=== PATIENT | male | born 1960 | race African-American/Black ===

== ENCOUNTER 2017-09-24 16:09 | Emergency (ER) | payer SELFPAY ==
[~2017-09-24] VITALS: Ht 177.8 cm; Wt 110.0 kg
[~2017-09-24 16:09] MED LIST: ACETAMIN325 MG PO; ADLT ASA LOW81 MG PO; AMLODIPINE5 MG PO; ATORVASTATIN CA40 MG PO; BL ADULT ASA81 MG OR; CAPTOPRIL25 MG OR; CIPROFLOXACN500 MG PO; CLONIDINE0.2 MG OR; COREG25 MG PO; HYDROCHLOROT25 MG OR; HYDROCHLOROT25 MG PO; LEVEMIR FL100 UNIT/M SC; LEVEMIR1000 UNITS SC; LISINOP/HCTZ1 TA1 PO; LYRICA100 MG PO; LYRICA50 MG PO; METFORMIN500 MG; METFORMIN500 MG PO; NO DOZ200 MG; NO MEDS; NOVOLOG MIX100 U/ML SC; NOVOLOG100 IU/1 M SC; PRILOSEC20 MG OR; PRILOSEC20 MG/CAP OR; REGLAN10 MG PO; THORAZINE25 MG OR; VERAPAMIL HCL180 MG PO; VERAPAMIL120 M1 PO; VERAPAMIL80 MG OR; ZOFRAN ODT4 MG PO; ZOFRAN ODT8 MG SL; ZOFRAN4 MG OR; ZOFRAN4 MG/TAB PO
[2017-09-24 17:01] LABS: HEMATOCRIT 44.1 % (39.0-50.0); HEMOGLOBIN 14.9 g/dl (14.0-18.0); IMMATURE GRANULOCYTES 0.9 % (0.0-1.0); MEAN CELL VOLUME 84.6 fL CALC (80.0-100.0); MEAN CORPUSCULAR HGB 28.6 pG CALC (26.0-32.0); MEAN CORPUSCULAR HGB CONC 33.8 g/L CALC (32.0-36.0); NEUT# 9.44 thou/uL (1.82-7.42); RED BLOOD COUNT 5.21 mill/uL (4.70-6.10); RED CELL DISTRI WIDTH 14.3 % (11.5-15.5)
[2017-09-24 17:17] LABS: INTERNATIONAL NORMALIZED RATIO 0.9 RATIO (0.7-1.3); PROTHROMBIN TIME 10.4 SECONDS (9.0-12.5)
[2017-09-24 17:41] LABS: ALBUMIN 4.9 g/dL (3.2-5.0); ALKALINE PHOSPHATASE 130 u/l (38-126); ANION GAP 22 (6-22 (CALC)); BILIRUBIN, TOTAL 0.6 mg/dL (0.0-1.4); BUN 15 mg/dL (9-20); BUN/CREATININE RATIO 18 (12-20 (CALC)); CALCIUM 10.2 mg/dL (8.4-10.2); CARBON DIOXIDE 26 mmol/l (22-30); CHLORIDE 98 mmol/l (95-108); CREATININE 0.8 mg/dL (0.7-1.3); GFR > 60 ML/MIN (>=60 (CALC)); GFR FOR AFR.AMER. > 60 ML/MIN (>=60 (CALC)); GLUCOSE 282 mg/dL (75-110); LIPASE 52 u/l (23-300); POTASSIUM 3.9 mmol/l (3.5-5.1); SGOT/AST 22 u/l (17-59); SGPT/ALT 28 u/l (21-72); SODIUM 143 mmol/l (137-146); TOTAL PROTEIN 7.6 g/dL (6.3-8.2)
[2017-09-24 19:25] VITALS: BP 158/81
[2017-09-24] MEDS ORDERED: ZOFRAN4 MG/TAB PO (19:42)
[2017-09-24] MEDS ORDERED: BENTYL20 MG PO (19:42)
[2017-09-24] MEDS ORDERED: PROTONIX40 MG PO (19:44)
== END 2017-09-24 19:25 | disposition home or self-care (01) | DRG 392 ==
LOC: ED 16:09
PROVIDERS: Family Medicine
DX: K52.9 Noninfective gastroenteritis and colitis, unspecified (principal); E11.9 Type 2 diabetes mellitus without complications; I10 Essential (primary) hypertension; F17.210 Nicotine dependence, cigarettes, uncomplicated
CPT/HCPCS: Q9967

== ENCOUNTER 2018-11-07 08:59 | Observation (INO) | payer BC ==
[2018-11-07] VITALS (60 sets, daily range): BP systolic 101–218; BP diastolic 54–119
[~2018-11-07] VITALS: Ht 177.8 cm; Wt 100.0 kg
[~2018-11-07 08:59] MED LIST changes: +BENTYL20 MG PO; +PROTONIX40 MG PO
[2018-11-07 10:21] LABS: HEMATOCRIT 42.3 % (39.0-50.0); HEMOGLOBIN 13.8 g/dl (14.0-18.0); IMMATURE GRANULOCYTES 0.5 % (0.0-5.0); MEAN CELL VOLUME 84.9 fL CALC (80.0-100.0); MEAN CORPUSCULAR HGB 27.7 pG CALC (26.0-32.0); MEAN CORPUSCULAR HGB CONC 32.6 g/L CALC (32.0-36.0); NEUT# 7.88 thou/uL (1.82-7.42); RED BLOOD COUNT 4.98 mill/uL (4.70-6.10); RED CELL DISTRI WIDTH 14.2 % (11.5-15.5)
[2018-11-07 10:27] LABS: URINE BILIRUBIN - DIPSTICK NEGATIVE (NEGATIVE); URINE BLOOD DIPSTICK NEGATIVE (NEGATIVE); URINE COLOR YELLOW; URINE GLUCOSE - DIPSTICK >=1000 mg/dL (NEGATIVE); URINE KETONE 15 mg/dL (NEGATIVE); URINE LEUK ESTERASE NEGATIVE (NEGATIVE); URINE NITRITE - DIPSTICK NEGATIVE (Negative); URINE PROTEIN - DIPSTICK NEGATIVE (NEG-TRACE); URINE SPECIFIC GRAVITY 1.015; URINE UROBILINOGEN - DIPSTICK 0.2 E.U./dL (0.2)
[2018-11-07 10:47] LABS: ALBUMIN 4.7 g/dL (3.2-5.0); ALKALINE PHOSPHATASE 120 u/l (38-126); ANION GAP 17 (6-22 (CALC)); BILIRUBIN, TOTAL 0.7 mg/dL (0.0-1.4); BUN 14 mg/dL (9-20); BUN/CREATININE RATIO 18 (12-20 (CALC)); CARBON DIOXIDE 25 mmol/l (22-30); CHLORIDE 102 mmol/l (95-108); CREATININE 0.8 mg/dL (0.7-1.3); GFR > 60 ML/MIN (>=60 (CALC)); GFR FOR AFR.AMER. > 60 ML/MIN (>=60 (CALC)); LIPASE 96 u/l (23-300); POTASSIUM 4.4 mmol/l (3.5-5.1); SGOT/AST 33 u/l (17-59); SODIUM 140 mmol/l (137-146); TOTAL PROTEIN 7.2 g/dL (6.3-8.2)
[2018-11-07] MEDS ORDERED: EQL ASPIRIN LOW81 MG PO (10:58)
[2018-11-07] MEDS ORDERED: ONDANSETRON4 MG PO (10:58)
[2018-11-08] VITALS (11 sets, daily range): BP systolic 104–134; BP diastolic 59–81
[2018-11-08 04:42] LABS: HEMATOCRIT 40.6 % (39.0-50.0); HEMOGLOBIN 13.6 g/dl (14.0-18.0); IMMATURE GRANULOCYTES 0.4 % (0.0-5.0); MEAN CELL VOLUME 83.7 fL CALC (80.0-100.0); MEAN CORPUSCULAR HGB CONC 33.5 g/L CALC (32.0-36.0); NEUT# 8.18 thou/uL (1.82-7.42); RED BLOOD COUNT 4.85 mill/uL (4.70-6.10); RED CELL DISTRI WIDTH 14.1 % (11.5-15.5)
[2018-11-08 04:54] LABS: ALBUMIN 4.1 g/dL (3.2-5.0); ALKALINE PHOSPHATASE 94 u/l (38-126); AMYLASE 106 u/l (30-110); BILIRUBIN, TOTAL 0.9 mg/dL (0.0-1.4); BUN 21 mg/dL (9-20); BUN/CREATININE RATIO 22 (12-20 (CALC)); CARBON DIOXIDE 24 mmol/l (22-30); CHLORIDE 103 mmol/l (95-108); CREATININE 0.9 mg/dL (0.7-1.3); GFR > 60 ML/MIN (>=60 (CALC)); GFR FOR AFR.AMER. > 60 ML/MIN (>=60 (CALC)); LIPASE 270 u/l (23-300); MAGNESIUM 1.7 mg/dL (1.6-2.3); SGOT/AST 25 u/l (17-59); SODIUM 138 mmol/l (137-146); TOTAL PROTEIN 6.5 g/dL (6.3-8.2)
[2018-11-08 04:56] LABS: ANION GAP 14 (6-22 (CALC))
[2018-11-08 04:57] LABS: POTASSIUM 3.2 mmol/l (3.5-5.1)
== END 2018-11-08 14:30 | disposition home or self-care (01) | DRG 305 ==
LOC: ED 08:59 → ED-I 13:18 → ED 13:29 → ICU 13:30
PROVIDERS: Family Medicine; ADMIT Internal Medicine Nephrology; ATTEND Internal Medicine Nephrology
PROC: 3E02340 Introduction of Influenza Vaccine into Muscle, Percutaneous Approach (ICD-10-PCS; principal; 2018-11-08)
PROC: 3E0234Z Introduction of Serum, Toxoid and Vaccine into Muscle, Percutaneous Approach (ICD-10-PCS; 2018-11-08)
DX: I16.1 Hypertensive emergency (principal); I10 Essential (primary) hypertension; K52.9 Noninfective gastroenteritis and colitis, unspecified; E11.9 Type 2 diabetes mellitus without complications; D35.01 Benign neoplasm of right adrenal gland; E78.5 Hyperlipidemia, unspecified; F12.10 Cannabis abuse, uncomplicated; F17.210 Nicotine dependence, cigarettes, uncomplicated; T46.5X6A Underdosing of other antihypertensive drugs, initial encounter; Z91.138 Patient's unintentional underdosing of medication regimen for other reason; Z79.4 Long term (current) use of insulin; Z23 Encounter for immunization
CPT/HCPCS: J1650; Q9967

== ENCOUNTER → 2018-11-23 | Outpatient (REF) ==
[~2018-11-23] MED LIST changes: +ADULT ASPIRIN R81 MG PO; +AMOXICILLIN500 MG PO; +CARVEDILOL6.25 MG PO; +CLARITHROMYC500 MG PO; +EQL ASPIRIN LOW81 MG PO; +HYDRALAZINE25 MG PO; +LISINOPRIL/HYDR1 TA1 PO; +LISINOPRIL10 MG PO; +OMEPRAZOLE10 MG PO; +ONDANSETRON4 MG PO; +PREVPAC PO
== END | disposition home or self-care (01) | DRG 639 ==
LOC: LAB 10:47
PROVIDERS: ATTEND Nurse Practitioner Family
DX: E11.65 Type 2 diabetes mellitus with hyperglycemia (principal); D35.01 Benign neoplasm of right adrenal gland; I10 Essential (primary) hypertension; E87.6 Hypokalemia; D72.829 Elevated white blood cell count, unspecified; Z12.5 Encounter for screening for malignant neoplasm of prostate

== ENCOUNTER 2018-12-09 18:34 | Emergency (ER) | payer BC ==
[~2018-12-09] VITALS: Ht 177.8 cm; Wt 98.2 kg
[~2018-12-09 18:34] MED LIST changes: -ADULT ASPIRIN R81 MG PO; -AMOXICILLIN500 MG PO; -CARVEDILOL6.25 MG PO; -CLARITHROMYC500 MG PO; -HYDRALAZINE25 MG PO; -LISINOPRIL/HYDR1 TA1 PO; -LISINOPRIL10 MG PO; -OMEPRAZOLE10 MG PO; -PREVPAC PO
[2018-12-09 19:24] LABS: HEMATOCRIT 38.2 % (39.0-50.0); HEMOGLOBIN 12.4 g/dl (14.0-18.0); IMMATURE GRANULOCYTES 0.7 % (0.0-5.0); MEAN CELL VOLUME 84.7 fL CALC (80.0-100.0); MEAN CORPUSCULAR HGB 27.5 pG CALC (26.0-32.0); MEAN CORPUSCULAR HGB CONC 32.5 g/L CALC (32.0-36.0); NEUT# 6.78 thou/uL (1.82-7.42); RED BLOOD COUNT 4.51 mill/uL (4.70-6.10); RED CELL DISTRI WIDTH 14.2 % (11.5-15.5)
[2018-12-09 20:11] LABS: ALBUMIN 4.6 g/dL (3.2-5.0); ALKALINE PHOSPHATASE 96 u/l (38-126); ANION GAP 16 (6-22 (CALC)); BILIRUBIN, TOTAL 0.4 mg/dL (0.0-1.4); BUN 23 mg/dL (9-20); BUN/CREATININE RATIO 27 (12-20 (CALC)); CARBON DIOXIDE 23 mmol/l (22-30); CHLORIDE 103 mmol/l (95-108); CPK 110 u/l (52-200); CREATININE 0.9 mg/dL (0.7-1.3); GFR > 60 ML/MIN (>=60 (CALC)); GFR FOR AFR.AMER. > 60 ML/MIN (>=60 (CALC)); LIPASE 304 u/l (23-300); POTASSIUM 3.8 mmol/l (3.5-5.1); SGOT/AST 18 u/l (17-59); SODIUM 138 mmol/l (137-146); TOTAL PROTEIN 7.1 g/dL (6.3-8.2)
[2018-12-09 20:41] LABS: TSH, 3RD GENERATION 1.53 uIU/mL (0.47 - 4.68)
[2018-12-09 23:23] LABS: URINE BILIRUBIN - DIPSTICK NEGATIVE (NEGATIVE); URINE BLOOD DIPSTICK NEGATIVE (NEGATIVE); URINE COLOR YELLOW; URINE GLUCOSE - DIPSTICK 250 mg/dL (NEGATIVE); URINE KETONE 15 mg/dL (NEGATIVE); URINE LEUK ESTERASE NEGATIVE (NEGATIVE); URINE NITRITE - DIPSTICK NEGATIVE (Negative); URINE PROTEIN - DIPSTICK NEGATIVE (NEG-TRACE); URINE UROBILINOGEN - DIPSTICK 0.2 E.U./dL (0.2)
[2018-12-09 23:28] LABS: BARBITURATES NEGATIVE (NEGATIVE); COCAINE NEGATIVE (NEGATIVE); METHADONE NEGATIVE (NEGATIVE); OXCYCODONE NEGATIVE (NEGATIVE); TETRAHYDROCANNABIONOL POSITIVE (NEGATIVE); TRICYLIC ANTIDEPRESSANTS NEGATIVE (NEGATIVE)
[2018-12-09] MEDS ORDERED: ZOFRAN ODT4 MG PO (23:38)
[2018-12-09] MEDS ORDERED: PREVPAC PO (23:38)
[2018-12-10 00:25] VITALS: BP 156/72
== END 2018-12-10 00:25 | disposition home or self-care (01) | DRG 312 ==
LOC: ED 18:34
PROVIDERS: Emergency Medicine; Family Medicine
DX: R55 Syncope and collapse (principal); I10 Essential (primary) hypertension; K29.70 Gastritis, unspecified, without bleeding; B96.81 Helicobacter pylori [H. pylori] as the cause of diseases classified elsewhere; J06.9 Acute upper respiratory infection, unspecified; R53.1 Weakness; R11.2 Nausea with vomiting, unspecified; R42 Dizziness and giddiness; F17.200 Nicotine dependence, unspecified, uncomplicated; E11.8 Type 2 diabetes mellitus with unspecified complications; Z79.4 Long term (current) use of insulin
CPT/HCPCS: Q9967

== ENCOUNTER 2018-12-12 14:19 | Observation (INO) | payer BC ==
[~2018-12-12] VITALS: Ht 175.3 cm; Wt 94.5 kg
[~2018-12-12 14:19] MED LIST changes: +PREVPAC PO
--- NOTE | 2018-12-12 14:53 | NUR ---
PT TO ROOM VIA WHEELCHAIR.
--- NOTE | 2018-12-12 15:00 | NUR ---
PT UNSTEADY AMBULATING FROM WHEELCHAIR TO STRETCHER. PT REPORTS DIZZINESS. PT PLACED REMIANS SLIGHTLY HYPOTENSIVE. PERRLA. PT REPORTS LEFT OCCIPITAL HEAD PAIN FROM FALL. MINIMAL SWELLING NOTED TO BACK OF HEAD WITH MINIMAL TENDERNESS. PT HAS SMALL ABRASION WITH MINIMAL BLEEDING NOTED. PT DENIES ANY PAIN. PT AND MOTHER AWARE OF PLAN OF CARE AND WAIT TIME. CALL GIBBS WITHIN REACH.
--- NOTE | 2018-12-12 15:15 | NUR ---
IV INITIATED AND LABS COLLECTED. UNABLT TO PLACE PT ON ROD BENDING MACHINE OPERATOR AT THIS TIME. CHARGE NURSE NOTIFIED. WILL CONTINUE TO MONITOR. IV FLUIDS INITAITED.
[2018-12-12 15:39] LABS: HEMATOCRIT 37.6 % (39.0-50.0); HEMOGLOBIN 12.5 g/dl (14.0-18.0); IMMATURE GRANULOCYTES 1.2 % (0.0-5.0); MEAN CELL VOLUME 82.6 fL CALC (80.0-100.0); MEAN CORPUSCULAR HGB 27.5 pG CALC (26.0-32.0); MEAN CORPUSCULAR HGB CONC 33.2 g/L CALC (32.0-36.0); NEUT# 4.87 thou/uL (1.82-7.42); RED BLOOD COUNT 4.55 mill/uL (4.70-6.10); RED CELL DISTRI WIDTH 13.9 % (11.5-15.5)
[2018-12-12 15:56] LABS: CREATININE 1.6 mg/dL (0.7-1.3); POTASSIUM 3.2 mmol/l (3.5-5.1)
--- NOTE | 2018-12-12 16:00 | NUR ---
PT URINATED 300 MLS OF BETTE URINE. PT DENIES ANY NEEDS AT THIS TIME. WILL CONTINUE TO MONITOR.
--- NOTE | 2018-12-12 17:00 | NUR ---
PT DOES NOT KNOW MEDICATION LIST. PT WILL BE CALLING MOTHER TO BRING HIS MEDICATIONS.
--- NOTE | 2018-12-12 17:30 | NUR ---
BP 112/68. PT DENIES ANY DIZZINESS. PT PLACED ON WAREHOUSE TECHNICIAN.
--- NOTE | 2018-12-12 18:00 | NUR ---
RIGHT ELBOW CLEANSED WITH SURECLEANSE AND COVERED WITH BANDAID.
--- NOTE | 2018-12-12 18:32 | NUR ---
MOTHER AT BEDSIDE TO BRING MEDICATIONS. BOTH ARE AWARE OF PLAN FOR ADMISSION AND WAIT TIME. CALL GIBBS WITHIN REACH.
--- NOTE | 2018-12-12 18:33 | NUR ---
PT DOES NOT KNOWN INSULIN TYPE OR DOSE.
[2018-12-12] MEDS ORDERED: AMOXICILLIN500 MG PO (18:34)
[2018-12-12] MEDS ORDERED: ADULT ASPIRIN R81 MG PO (18:35)
[2018-12-12] MEDS ORDERED: HYDRALAZINE25 MG PO (18:36)
[2018-12-12] MEDS ORDERED: OMEPRAZOLE10 MG PO (18:36)
[2018-12-12] MEDS ORDERED: CARVEDILOL6.25 MG PO (18:37)
[2018-12-12] MEDS ORDERED: LISINOPRIL/HYDR1 TA1 PO (18:37)
[2018-12-12] MEDS ORDERED: CLARITHROMYC500 MG PO (18:38)
[2018-12-12] MEDS ORDERED: AMLODIPINE5 MG PO (18:39)
--- NOTE | 2018-12-12 18:45 | NUR ---
REPORT TO JUNIOR JONES.
--- NOTE | 2018-12-12 18:50 | NUR ---
PT TO BE TRANSPORTED TO ROOM IN 45MINS. JUNIOR JONES AWARE OF UNKNOWN INSULIN.
--- NOTE | 2018-12-12 19:45 | NUR ---
PT TRANSFERED TO FLOOR VIA WHEELCHAIR BY KATELIN RUFFIN NURSING LEATHER CLEANER WITH TELE PACK ON.
[2018-12-12 19:50] VITALS: BP 145/93
--- NOTE | 2018-12-12 19:50 | NUR ---
PT TRANSFERED FROM ER VIA WHEELCHAIR. PT ALERT AND ORIENTED X3. PT APPEARS TO HAVE DEVELOPMENTAL DELAY. LIVES AT HOME WITH HIS MOTHER. AMBULATED WITH STAND BY ASSIST FROM CHAIR TO BED. PT DENIES ANY PAIN AT THIS TIME STATES BACK OF HEAD IS SORE. RESPIRATIONS EVEN AND UNLABORED. SEIZURE PRECAUTIONS IN PLACE. THERMOFORMING OPERATOR ON. IV SITE APPEARS HEALTHY. ORIENTED TO ROOM AND CALL LIGHT SYSTEM. DISCUSSED POC. PT VERBALIZED UNDERSTANDING. CALL LIGHT WITHIN REACH. WILL CONTINUE TO MONITOR.
--- NOTE | 2018-12-12 23:15 | NUR ---
PT RESTING IN BED WITH EYES CLOSED. EASILY AROUSED. DENIES ANY PAIN OR DISCOMFORT. CALL LIGHT WITHIN REACH. WILL CONTINUE TO MONITOR.
[2018-12-12 23:54] VITALS: BP 103/60
[2018-12-13 04:07] VITALS: BP 110/79
--- NOTE | 2018-12-13 04:28 | NUR ---
PT RESTING IN BED WITH EYES CLOSED. EASILY AROUSED. ALERT AND ORIENTED. NO S/S OF DISTRESS NOTED. PT DENIES ANY WANTS OR NEEDS. CALL LIGHT WITHIN REACH. WILL CONTINUE TO MONITOR.
[2018-12-13 05:33] LABS: ALKALINE PHOSPHATASE 73 u/l (38-126); AMYLASE 82 u/l (30-110); BILIRUBIN, TOTAL 0.7 mg/dL (0.0-1.4); BUN 24 mg/dL (9-20); BUN/CREATININE RATIO 26 (12-20 (CALC)); CARBON DIOXIDE 28 mmol/l (22-30); CHLORIDE 97 mmol/l (95-108); GFR > 60 ML/MIN (>=60 (CALC)); GFR FOR AFR.AMER. > 60 ML/MIN (>=60 (CALC)); LIPASE 192 u/l (23-300); MAGNESIUM 1.8 mg/dL (1.6-2.3); SGOT/AST 15 u/l (17-59); SODIUM 134 mmol/l (137-146); TOTAL PROTEIN 5.8 g/dL (6.3-8.2)
[2018-12-13 05:35] LABS: ALBUMIN 3.6 g/dL (3.2-5.0); ANION GAP 13 (6-22 (CALC)); POTASSIUM 3.9 mmol/l (3.5-5.1)
[2018-12-13 05:36] LABS: HEMOGLOBIN 11.2 g/dl (14.0-18.0); IMMATURE GRANULOCYTES 1.1 % (0.0-5.0); MEAN CELL VOLUME 84.8 fL CALC (80.0-100.0); MEAN CORPUSCULAR HGB 27.9 pG CALC (26.0-32.0); MEAN CORPUSCULAR HGB CONC 32.9 g/L CALC (32.0-36.0); NEUT# 3.74 thou/uL (1.82-7.42); RED BLOOD COUNT 4.01 mill/uL (4.70-6.10); RED CELL DISTRI WIDTH 13.8 % (11.5-15.5)
--- NOTE | 2018-12-13 06:32 | NUR ---
NOTIFIED DR. IRVIN OF PT CURRENT LABS AND STATUS THROUGHOUT NIGHT. NO NEW ORDERS RECIEVED AT THIS TIME.
[2018-12-13 07:33] VITALS: BP 126/89
--- NOTE | 2018-12-13 08:00 | NUR ---
REPORT WAS RECEIVED FROM TIERA. PT IS SITTING IN THE SIDE OF THE BED. ASSESSMENT DONE. TELE IN PLACE. PT IS A&O X3. PT DENIES ANY PAIN AT THIS TIME. RESPS EVEN AND UNLABORED. SAFETY PRECAUTIONS REINFORCED AND CALL LIGHT IN REACH.
[2018-12-13 10:35] VITALS: BP 115/74
[2018-12-13 10:50] VITALS: BP 100/68
[2018-12-13 11:05] VITALS: BP 117/80
--- NOTE | 2018-12-13 11:26 | NUR ---
PT IS RESTING IN BED WITH NO S/S OF DISTRESS NOTED. PT DENIES ANY NEEDS AT THIS TIME. CALL LIGHT IN REACH.
[2018-12-13] MEDS ORDERED: LISINOPRIL10 MG PO (13:37)
--- NOTE | 2018-12-13 15:15 | NUR ---
Discharge instructions given. Patient verbalizes understanding of same. Discharged in stable condition via Wheelchair to Home with volunteer. All belongings sent with pt.
== END 2018-12-13 15:15 | disposition home health service (06) | DRG 316 ==
LOC: ED 14:19 → ED-I 17:19 → ED 17:55 → MS2 17:56
PROVIDERS: Family Medicine; ADMIT Internal Medicine Nephrology; ATTEND Internal Medicine Nephrology
DX: I95.9 Hypotension, unspecified (principal); E86.0 Dehydration; E87.6 Hypokalemia; E11.9 Type 2 diabetes mellitus without complications; I10 Essential (primary) hypertension; F17.210 Nicotine dependence, cigarettes, uncomplicated; N28.9 Disorder of kidney and ureter, unspecified; E78.5 Hyperlipidemia, unspecified; F79 Unspecified intellectual disabilities; Z79.4 Long term (current) use of insulin
CPT/HCPCS: G0378

== ENCOUNTER 2019-08-05 05:32 | Inpatient (IN) | payer BC ==
[2019-08-05] VITALS (26 sets, daily range): BP systolic 134–201; BP diastolic 64–115
[~2019-08-05] VITALS: Ht 175.3 cm; Wt 98.0 kg
[~2019-08-05 05:32] MED LIST changes: +ADULT ASPIRIN R81 MG PO; +AMOXICILLIN500 MG PO; +CARVEDILOL6.25 MG PO; +CLARITHROMYC500 MG PO; +HYDRALAZINE25 MG PO; +LISINOPRIL/HYDR1 TA1 PO; +LISINOPRIL10 MG PO; +OMEPRAZOLE10 MG PO
[2019-08-05 06:12] LABS: IMMATURE GRANULOCYTES 1.2 % (0.0-5.0); MEAN CORPUSCULAR HGB 26.6 pG CALC (26.0-32.0); MEAN CORPUSCULAR HGB CONC 32.9 g/L CALC (32.0-36.0); NEUT# 7.22 thou/uL (1.82-7.42); RED BLOOD COUNT 5.41 mill/uL (4.70-6.10)
[2019-08-05 06:14] LABS: HEMATOCRIT 43.8 % (39.0-50.0); HEMOGLOBIN 14.4 g/dl (14.0-18.0)
[2019-08-05 06:25] LABS: AMYLASE 80 u/l (30-110); BILIRUBIN, TOTAL 0.6 mg/dL (0.0-1.4); BUN 14 mg/dL (9-20); BUN/CREATININE RATIO 15 (12-20 (CALC)); CARBON DIOXIDE 29 mmol/l (22-30); CHLORIDE 101 mmol/l (95-108); CREATININE 0.9 mg/dL (0.7-1.3); GFR > 60 ML/MIN (>=60 (CALC)); GFR FOR AFR.AMER. > 60 ML/MIN (>=60 (CALC)); LIPASE 63 u/l (23-300); POTASSIUM 3.7 mmol/l (3.5-5.1); SGOT/AST 23 u/l (17-59)
[2019-08-05 06:27] LABS: ALBUMIN 4.9 g/dL (3.2-5.0); ALKALINE PHOSPHATASE 129 u/l (38-126); ANION GAP 17 (6-22 (CALC)); SODIUM 143 mmol/l (137-146); TOTAL PROTEIN 8.4 g/dL (6.3-8.2)
[2019-08-05 06:36] LABS: MYOGLOBIN 62 ng/mL (0 - 121)
[2019-08-05] MEDS ORDERED: ZESTRIL10 M1 PO (07:32)
[2019-08-05] MEDS ORDERED: COREG6.25 MG PO (07:33)
[2019-08-05] MEDS ORDERED: LEVEMIR FL100 UNIT/M SC (07:34)
[2019-08-05] MEDS ORDERED: NOVOLOG100 UNIT/M SC (07:34)
[2019-08-05 07:36] LABS: URINE BILIRUBIN - DIPSTICK NEGATIVE (NEGATIVE); URINE BLOOD DIPSTICK NEGATIVE (NEGATIVE); URINE COLOR YELLOW; URINE GLUCOSE - DIPSTICK >=1000 mg/dL (NEGATIVE); URINE KETONE NEGATIVE (NEGATIVE); URINE LEUK ESTERASE NEGATIVE (NEGATIVE); URINE NITRITE - DIPSTICK NEGATIVE (Negative); URINE PROTEIN - DIPSTICK NEGATIVE (NEG-TRACE); URINE UROBILINOGEN - DIPSTICK 0.2 E.U./dL (0.2)
[2019-08-05 07:42] LABS: BARBITURATES NEGATIVE (NEGATIVE); COCAINE NEGATIVE (NEGATIVE); METHADONE NEGATIVE (NEGATIVE); OXCYCODONE NEGATIVE (NEGATIVE); TETRAHYDROCANNABIONOL POSITIVE (NEGATIVE); TRICYLIC ANTIDEPRESSANTS NEGATIVE (NEGATIVE)
[2019-08-06] VITALS (16 sets, daily range): BP systolic 112–183; BP diastolic 51–106
[2019-08-06 07:08] LABS: HEMATOCRIT 38.6 % (39.0-50.0); HEMOGLOBIN 12.7 g/dl (14.0-18.0); MEAN CELL VOLUME 81.1 fL CALC (80.0-100.0); MEAN CORPUSCULAR HGB 26.7 pG CALC (26.0-32.0); MEAN CORPUSCULAR HGB CONC 32.9 g/L CALC (32.0-36.0); RED BLOOD COUNT 4.76 mill/uL (4.70-6.10); RED CELL DISTRI WIDTH 16.7 % (11.5-15.5)
[2019-08-06 07:36] LABS: ALBUMIN 3.6 g/dL (3.2-5.0); ALKALINE PHOSPHATASE 81 u/l (38-126); ANION GAP 11 (6-22 (CALC)); BILIRUBIN, TOTAL 1.4 mg/dL (0.0-1.4); BUN 16 mg/dL (9-20); BUN/CREATININE RATIO 19 (12-20 (CALC)); CARBON DIOXIDE 24 mmol/l (22-30); CHLORIDE 105 mmol/l (95-108); CREATININE 0.8 mg/dL (0.7-1.3); GFR > 60 ML/MIN (>=60 (CALC)); GFR FOR AFR.AMER. > 60 ML/MIN (>=60 (CALC)); POTASSIUM 3.7 mmol/l (3.5-5.1); SGOT/AST 29 u/l (17-59); SODIUM 137 mmol/l (137-146); TOTAL PROTEIN 6.1 g/dL (6.3-8.2)
[2019-08-07] VITALS (10 sets, daily range): BP systolic 148–178; BP diastolic 79–110
[2019-08-07] MEDS ORDERED: AMLODIPINE BESYL5 MG PO (09:47)
== END 2019-08-07 10:56 | disposition home or self-care (01) | DRG 392 ==
LOC: ED 05:32 → ED-I 07:32 → ED 07:46 → ICU 07:47
PROVIDERS: Emergency Medicine; Internal Medicine; ADMIT Internal Medicine; ATTEND Internal Medicine
PROC: 3E0234Z Introduction of Serum, Toxoid and Vaccine into Muscle, Percutaneous Approach (ICD-10-PCS; principal; 2019-08-06)
DX: K52.9 Noninfective gastroenteritis and colitis, unspecified (principal); E87.2 Acidosis; I16.0 Hypertensive urgency; I10 Essential (primary) hypertension; F17.210 Nicotine dependence, cigarettes, uncomplicated; E11.65 Type 2 diabetes mellitus with hyperglycemia; Z79.4 Long term (current) use of insulin; E86.0 Dehydration; F12.90 Cannabis use, unspecified, uncomplicated
CPT/HCPCS: S0164

== ENCOUNTER 2019-08-08 08:55 | Emergency (ER) | payer BC ==
[~2019-08-08] VITALS: Ht 175.3 cm; Wt 100.0 kg
[~2019-08-08 08:55] MED LIST changes: +AMLODIPINE BESYL5 MG PO; +COREG6.25 MG PO; +NOVOLOG100 UNIT/M SC; +ZESTRIL10 M1 PO
[2019-08-08 09:41] LABS: HEMATOCRIT 40.5 % (39.0-50.0); HEMOGLOBIN 12.9 g/dl (14.0-18.0); IMMATURE GRANULOCYTES 0.6 % (0.0-5.0); MEAN CELL VOLUME 82.8 fL CALC (80.0-100.0); MEAN CORPUSCULAR HGB 26.4 pG CALC (26.0-32.0); MEAN CORPUSCULAR HGB CONC 31.9 g/L CALC (32.0-36.0); NEUT# 3.96 thou/uL (1.82-7.42); RED BLOOD COUNT 4.89 mill/uL (4.70-6.10); RED CELL DISTRI WIDTH 16.1 % (11.5-15.5)
[2019-08-08 09:51] LABS: ALBUMIN 3.7 g/dL (3.2-5.0); ALKALINE PHOSPHATASE 105 u/l (38-126); ANION GAP 12 (6-22 (CALC)); BUN 16 mg/dL (9-20); BUN/CREATININE RATIO 18 (12-20 (CALC)); CARBON DIOXIDE 24 mmol/l (22-30); CHLORIDE 107 mmol/l (95-108); CREATININE 0.9 mg/dL (0.7-1.3); GFR > 60 ML/MIN (>=60 (CALC)); GFR FOR AFR.AMER. > 60 ML/MIN (>=60 (CALC)); POTASSIUM 4.4 mmol/l (3.5-5.1); SGOT/AST 20 u/l (17-59); SODIUM 138 mmol/l (137-146); TOTAL PROTEIN 6.6 g/dL (6.3-8.2)
[2019-08-08 09:52] LABS: BILIRUBIN, TOTAL 0.3 mg/dL (0.0-1.4)
[2019-08-08 10:36] VITALS: BP 161/87
== END 2019-08-08 10:36 | disposition home or self-care (01) | DRG 305 ==
LOC: ED 08:55
DX: I10 Essential (primary) hypertension (principal)

== ENCOUNTER 2020-01-30 | Observation (INO) | payer BC ==
[2020-01-30] VITALS (13 sets, daily range): BP systolic 119–196; BP diastolic 63–107
--- NOTE | 2020-01-30 06:22 | NUR ---
PT FROM REGISTRATION TO ROOM VIA W/C. DIAPHORETIC. TRIAGED AT BEDSIDE. INT/LABS/ACCUK COMPLETED.
--- NOTE | 2020-01-30 06:30 | NUR ---
AT BEDSIDE. EKG DONE.
[2020-01-30] MEDS ORDERED: METFORMIN500 M2 PO (06:39)
[2020-01-30 06:59] LABS: HEMATOCRIT 40.6 % (39.0-50.0); HEMOGLOBIN 13.2 g/dl (14.0-18.0); MEAN CELL VOLUME 82.9 fL CALC (80.0-100.0); MEAN CORPUSCULAR HGB 26.9 pG CALC (26.0-32.0); MEAN CORPUSCULAR HGB CONC 32.5 g/dL CAL (32.0-36.0); NEUT# 7.71 thou/uL (1.82-7.42); RED BLOOD COUNT 4.9 mill/uL (4.70-6.10); RED CELL DISTRI WIDTH 15.1 % (11.5-15.5)
--- NOTE | 2020-01-30 07:00 | NUR ---
RECIEVED CARE OF PATIENT. PT AO X 3. SKIN WARM, PINK, DIAPHORETIC. PT PRESENTS WITH COMPLAINTS OF NAUSEA, VOMITING AND DIARRHEA. MEDICATED PREVIOUSLY FOR NAUSEA WITH GOOD RESULTS. MEDICATED PREVIOUSLY FOR HTN, MONITORING PATIENT AT PRESENT. PT POSITIONED FOR COMFORT. BLANKET GIVEN.
[2020-01-30 07:06] LABS: ALKALINE PHOSPHATASE 112 u/l (38-126); AMYLASE 127 u/l (30-110); ANION GAP 13 (6-22 (CALC)); BILIRUBIN, TOTAL 0.4 mg/dL (0.0-1.4); BUN 15 mg/dL (9-20); BUN/CREATININE RATIO 18 (12-20 (CALC)); CARBON DIOXIDE 25 mmol/l (22-30); CHLORIDE 108 mmol/l (95-108); CREATININE 0.8 mg/dL (0.7-1.3); GFR > 60 ML/MIN (>=60 (CALC)); GFR FOR AFR.AMER. > 60 ML/MIN (>=60 (CALC)); LIPASE 137 u/l (23-300); SGOT/AST 32 u/l (17-59); SODIUM 141 mmol/l (137-146)
[2020-01-30 07:09] LABS: ALBUMIN 4.8 g/dL (3.2-5.0); TOTAL PROTEIN 8.2 g/dL (6.3-8.2)
[2020-01-30 07:18] LABS: MYOGLOBIN 28 ng/mL (0 - 121)
[2020-01-30 07:19] LABS: URINE BILIRUBIN - DIPSTICK NEGATIVE (NEGATIVE); URINE BLOOD DIPSTICK NEGATIVE (NEGATIVE); URINE COLOR YELLOW; URINE GLUCOSE - DIPSTICK >=1000 mg/dL (NEGATIVE); URINE KETONE NEGATIVE (NEGATIVE); URINE LEUK ESTERASE NEGATIVE (NEGATIVE); URINE NITRITE - DIPSTICK NEGATIVE (Negative); URINE PROTEIN - DIPSTICK NEGATIVE (NEG-TRACE); URINE UROBILINOGEN - DIPSTICK 0.2 E.U./dL (0.2)
--- NOTE | 2020-01-30 07:20 | NUR ---
PT AMBULATORY TO BATHROOM FOR DIARRHEA STOOL. RETURNED TO ROOM. PT POAITIONED FOR COMFORT. MONITORS APPLIED. NO LONGER DIAPHORETIC.
[2020-01-30 07:22] LABS: COCAINE NEGATIVE (NEGATIVE); METHADONE NEGATIVE (NEGATIVE); TETRAHYDROCANNABIONOL POSITIVE (NEGATIVE)
[2020-01-30 07:23] LABS: BARBITURATES NEGATIVE (NEGATIVE); OXCYCODONE NEGATIVE (NEGATIVE); TRICYLIC ANTIDEPRESSANTS NEGATIVE (NEGATIVE)
--- NOTE | 2020-01-30 07:49 | NUR ---
PT RETURNED FROM XRAY. MONITORS IN PLACE
--- NOTE | 2020-01-30 08:24 | NUR ---
PT RESTING ON STRETCHER. AWAITING RESULTS
--- NOTE | 2020-01-30 08:32 | NUR ---
PT MEDICATED. LIGHTS DIMMED PER PATIENT REQUEST
--- NOTE | 2020-01-30 08:50 | NUR ---
pt had approx 150 ml emesis bile tinged fluid.
--- NOTE | 2020-01-30 08:59 | NUR ---
MEDICATED. PT REPORTS HIS MOTHER CAN DRIVE HIM HOME SHOULD HE BE DISCHARGED.
--- NOTE | 2020-01-30 10:00 | NUR ---
PT RESTING COMFORTABLY.
--- NOTE | 2020-01-30 11:00 | NUR ---
PT RESTING ON STRETCHER. IVS INFUSING. WAITING FOR ICU BED PLACEMENT
--- NOTE | 2020-01-30 12:02 | NUR ---
PT INSULIN GIVEN FOR BG 215. LUNCH TRAY GIVEN
--- NOTE | 2020-01-30 12:50 | NUR ---
SPOKE WITH PATIENTS MOTHER REGARDING HIS CONDITION AFTER OBTAINING PATIENT PERMISSION
--- NOTE | 2020-01-30 13:13 | NUR ---
REPORT GIVEN TO CATHY THOMASON. ICU
--- NOTE | 2020-01-30 13:20 | NUR ---
PT TAKEN VIA STRETCHER, MONITOR IN PLACE, DRIP INFUSING TO ICU
--- NOTE | 2020-01-30 13:30 | NUR ---
PT ARRIVED TO ICU6 FROM ER W/IV MEDS & TELE ON STRETCHER. PT ABLE TO ROLL ONTO NEW BED FROM STRETCHER. ON MONITORS. PT REQUESTING WATER.
--- NOTE | 2020-01-30 14:00 | NUR ---
PT C/O N/V/D +SWEATING SINCE 020 THIS AM. DENIES PAIN. AT THIS TIME, SKIN HOT/DRY/PINK. LAST BM WS DIARRHEA IN ER AROUND 1000 TODAY. PT LIVES WITH MOTHER & DRIVES SELF. DENIES ALLERGIES TO MEDICINE OR FOOD. DENIES ADVANCE DIRECTIVE. DENIES HX OF BLOOD TRANSFUSION BUT HAS NO OBJECTIONS IF NEEDED. HEARING AIDS: NO. DENTURES: NO. GLASSES: NO. DENIES ALCOHOL. SMOKES 0.5 PACK OF CIGARETTES/DAY. SMOKED THC YESTERDAY. DENIES HX OF MRSA, VRE, ESBL. ALREADY HAD THE FLU & PNA VACCINE THIS SEASON. DENIES PAIN W/URINATION. DENIES SKIN ALTERATIONS. DENIES FALLING. DENIES USE OF MOBILITY AID. DOES NOT TAKE ANYTING AT HOME FOR PAIN. SHINTO: TAOISM. PRIMARY LANGUAGE: UKRAINIAN. DENIES HOME HEALTH & RECENT DC FROM HOSPITAL. PT APPEARS TO HAVE A MENTAL DISABLITY NOT LISTED IN HISTORY. BREATHING EVEN/UNLABORED, LUNGS CTA. SINUS TACH ON MONITOR IN 100-110'S. ON CARDENE DRIP @5. STRONG PULSES x4. -3 CAP REFILL. SKIN HOT/DRY/NORMAL. NO EDEMA. ABD SOFT/NONTENDER, ACTIVE BS. MICHELLE. PT A&Ox4. EYES PERRLA @3. SPEECH GARBLED. PT RUIZ.
--- NOTE | 2020-01-30 14:18 | NUR ---
DR MATTSON @BEDSIDE FOR ASSESSMENT.
--- NOTE | 2020-01-30 14:38 | NUR ---
IN ROOM AFTER HEARING PT VOMIT ALL OVER FLOOR ON SIDE OF BED. PT DENIES NAUSEA OR PAIN. PT GIVEN EMESIS BAG. HOUSEKEEPING AT BEDSIDE WITH MOP. PITCHER OF WATER REMOVED FROM BEDSIDE TABLE. NOTIFIED DR MATTSON. EMPTIED 225ml CLEAR YELLOW URINE FROM URINAL.
--- NOTE | 2020-01-30 14:55 | NUR ---
METFORMIN 500MG, LISINOPRIL 10MG, AMLODIPINE 5MG, ASA 81 MG, CAVEDILOL 6.25MG HOME MEDS SENT TO PHARMACY IN SECURITY BAG.
--- NOTE | 2020-01-30 15:24 | NUR ---
NEW BAG OF NICARDIPINE STARTED @5MG-50ML/HR. NACL @100ML/HR. PT SLEEPING.
--- NOTE | 2020-01-30 15:45 | NUR ---
emptied 200ml emesis. there was red but unsure if it was blood or food/drinks. aware.
--- NOTE | 2020-01-30 16:47 | NUR ---
PT ASSISTED UP TO BSC, THEN STATES HE THINKS IT WAS A FALSE ALARM. PT ENCOURAGED TO SIT ON BSC FOR A FEW MINS & GIVEN CALLBELL TO CALL FOR ASSISTANCE BACK IN BED. NOTICED PT CLIMBING BACK INTO BED BY SELF, REMINDED PT TO WAIT FOR STAFF.
--- NOTE | 2020-01-30 17:11 | NUR ---
PT JUST FELL ASLEEP. WILL POSTPONE ACCUCHECK & HOLD DINNER D/T NAUSEA.
--- NOTE | 2020-01-30 17:35 | NUR ---
PT OBSESRVED TRYING TO GET OUT OF BED. BED ALARM SET. SKIN WARM/DAIPHORETIC/ NORMAL. TYMPATIC TEMP 98.1. ACCUCHECK COMPLETED, 1u INSULIN HELD WITH DINNER.
--- NOTE | 2020-01-30 19:10 | NUR ---
awake. mentally slow. denies n/v. property assessment monitor shows sinus tach hr 113. #18 rac. cardene gtt infusing @ 5mg/hr ns infusing @ 100cchr. sips po fluids given. voids per urinal. urine clear yellow. fall precautions & bed alarm cont.
--- NOTE | 2020-01-30 21:00 | NUR ---
no n/v. sips of water given. jay well.
--- NOTE | 2020-01-30 22:00 | NUR ---
eyes closed. no disterss. quality assurance monitor body shows sinus tach pvcs hr 102.
[2020-01-31] VITALS (25 sets, daily range): BP systolic 117–171; BP diastolic 64–102
--- NOTE | 2020-01-31 00:01 | NUR ---
voided per urinal. no c/o. ivf infusing well.
--- NOTE | 2020-01-31 02:00 | NUR ---
resting quietly. no apparent distress. copy camera operator shows sinus rhythm hr 90.
--- NOTE | 2020-01-31 04:00 | NUR ---
voided per urinal. jay well.
--- NOTE | 2020-01-31 06:00 | NUR ---
no acute change in condition. playground monitor shows sinus rhythm pvcs hr 90.
--- NOTE | 2020-01-31 08:17 | NUR ---
PT GIVEN LIQUID BREAKFAST TRAY. PT INSTRUCTED TO STOP EATING & NOTIFY STAFF IMMEDIATELY IF HE GETS NAUSEOUS. PT DENIES NAUSEA AT THIS TIME.
--- NOTE | 2020-01-31 08:43 | NUR ---
PT ASSISTED UP TO BATHROOM TOILET FOR BM.
--- NOTE | 2020-01-31 08:50 | NUR ---
LINENS CHANGED. PT BRUSHING TEETH.
--- NOTE | 2020-01-31 08:52 | NUR ---
DR WU @BEDSIDE, ASSESSING PT. WILL STOP CARDENE & NACL NOW AND PUT PT BACK ON HOME MEDS. LAB @BEDSIDE FOR AM DRAW.
[2020-01-31 09:06] LABS: HEMATOCRIT 40.4 % (39.0-50.0); HEMOGLOBIN 13.2 g/dl (14.0-18.0); IMMATURE GRANULOCYTES 0.6 % (0.0-5.0); MEAN CELL VOLUME 82.6 fL CALC (80.0-100.0); MEAN CORPUSCULAR HGB CONC 32.7 g/dL CAL (32.0-36.0); NEUT# 10.06 thou/uL (1.82-7.42); RED BLOOD COUNT 4.89 mill/uL (4.70-6.10); RED CELL DISTRI WIDTH 15.5 % (11.5-15.5)
--- NOTE | 2020-01-31 09:13 | NUR ---
PT IN A GOOD MOOD TODAY. EXCITED "TO STAY ANOTHER DAY WITH ME". DENIES PAIN. DENIES N/V. BM THIS AM WAS SOFT/FORMED BROWN LARGE. CALLBELL W/IN REACH. NO CONCERNS/NEEDS AT THIS TIME. WILL CONTINUE TO MONITOR.
[2020-01-31 09:29] LABS: ALBUMIN 4.4 g/dL (3.2-5.0); ALKALINE PHOSPHATASE 85 u/l (38-126); ANION GAP 13 (6-22 (CALC)); BUN 14 mg/dL (9-20); BUN/CREATININE RATIO 21 (12-20 (CALC)); CARBON DIOXIDE 21 mmol/l (22-30); CHLORIDE 107 mmol/l (95-108); CREATININE 0.7 mg/dL (0.7-1.3); GFR > 60 ML/MIN (>=60 (CALC)); GFR FOR AFR.AMER. > 60 ML/MIN (>=60 (CALC)); SGOT/AST 26 u/l (17-59); SODIUM 137 mmol/l (137-146); TOTAL PROTEIN 7.4 g/dL (6.3-8.2)
--- NOTE | 2020-01-31 11:30 | NUR ---
PT SITTING UP ON SIDE OF BED, EATING LUNCH. NO S/S OF DISTRESS. NO NEEDS/CONCERNS AT THIS TIME. WILL CONTINUE TO MONITOR.
--- NOTE | 2020-01-31 13:00 | NUR ---
PT LAYING IN BED SLEEPING. REPOSITIONS SELF. NO S/S OF DISTRESS AT THIS TIME. CALLBELL W/IN REACH. WILL CONTINUE TO MONITOR.
--- NOTE | 2020-01-31 14:58 | NUR ---
PT SLEEPING ON/OFF THROUGHOUT DAY. BREATHING EVEN/UNLABORED. DIET CHANGED TO SOFT- PT DENIES N/V/D. PT DENIES PAIN. CALLBELL W/IN REACH. WILL CONTINUE TO MONITOR.
--- NOTE | 2020-01-31 17:13 | NUR ---
ASKED PT WHAT HE LIKES TO DO AT HOME, PT STATES "LAY IN BED". PT VERY HAPPY WITH DINNER TRAY, STATES GREEN BEANS ARE HIS FAVORITE. PT UPSET WITH ALL THE YELLING & CUSSING EARLIER, STATES IT WAS "RUDE". PT GRATEFUL FOR CARE.
--- NOTE | 2020-01-31 19:50 | NUR ---
PATIENT AWAKENS EASILY WHN SPOKEN TO. ORIENTED X4. ANSWERS ALL QUESTIONS AND FOLLOWS ALL COMMANDS. NURSING ASSESSMENT PERFORMED. RAC AND L-HAND IV'S INTACT AND FLUSH PROPERLY, SALINE,LOCKED. SR ON TELEMETRY, AFEBRILE, 100 % ON RA, NO SOB NOTED. DENIES NAUSEA AND PAIN. POC FOR TONIGHT DISCUSSED. URINAL EMPTIED, URINE IS YELLOW AND CLEAR, NO MAL ODOR. CALL LIGHT WITHIN REACH.
--- NOTE | 2020-01-31 21:08 | NUR ---
PATIENT ABLE TO TOLERATE HIS BEDTIME PO MEDICATION WELL INSULIN INJECTION. NO ACUTE DISTRESS SHOWN. NO NEEDS OR COMPLAINTS AT THIS TIME. LIGHTS TURNED OFF AND PATIENT RESTS WITH EYES CLOSED. CALL LIGHT WITHIN REACH.
--- NOTE | 2020-01-31 23:34 | NUR ---
PATIENT LAYS ON HIS RIGHT SIDE, RESTS ITH EYES CLOSED. NO ACUTE DISTRESS SHOWN.
[2020-02-01] VITALS (9 sets, daily range): BP systolic 140–177; BP diastolic 69–92
--- NOTE | 2020-02-01 01:45 | NUR ---
MERCHANDISE MANAGER LIGHT, REQUESTS WATER, PROVIDED. NO ACUTE DISTRESS SHOWN. NO COMPLAINTS OR OTHER NEEDS AT THIS TIME. CALL LIGHT WITHIN REACH.
[2020-02-01 05:11] LABS: HEMATOCRIT 38.1 % (39.0-50.0); IMMATURE GRANULOCYTES 0.6 % (0.0-5.0); MEAN CELL VOLUME 83.4 fL CALC (80.0-100.0); MEAN CORPUSCULAR HGB 26.3 pG CALC (26.0-32.0); MEAN CORPUSCULAR HGB CONC 31.5 g/dL CAL (32.0-36.0); NEUT# 4.82 thou/uL (1.82-7.42); RED BLOOD COUNT 4.57 mill/uL (4.70-6.10); RED CELL DISTRI WIDTH 15.5 % (11.5-15.5)
[2020-02-01 05:37] LABS: ANION GAP 10 (6-22 (CALC)); BUN 15 mg/dL (9-20); BUN/CREATININE RATIO 21 (12-20 (CALC)); CARBON DIOXIDE 24 mmol/l (22-30); CHLORIDE 105 mmol/l (95-108); CREATININE 0.7 mg/dL (0.7-1.3); GFR > 60 ML/MIN (>=60 (CALC)); GFR FOR AFR.AMER. > 60 ML/MIN (>=60 (CALC)); MAGNESIUM 1.9 mg/dL (1.6-2.3); POTASSIUM 3.8 mmol/l (3.5-5.1); SODIUM 135 mmol/l (137-146)
--- NOTE | 2020-02-01 08:15 | NUR ---
PT SITTING UP ON SIDE OF BED, EATING BREAKFAST.
--- NOTE | 2020-02-01 08:50 | NUR ---
DR WU @BEDSIDE WITH PT, ASSESSING & DISCUSSING POC
[2020-02-01] MEDS ORDERED: ZESTRIL10 M1 PO ×2 (09:32)
--- NOTE | 2020-02-01 11:05 | NUR ---
IV site discontinued, cath intact. No edema , no redness, voices no discomfort.
--- NOTE | 2020-02-01 11:07 | NUR ---
PT EDUCATED ON DC INSTRUCTIONS, INCLUDING RX x1 CHANGE.
--- NOTE | 2020-02-01 11:20 | NUR ---
PT TAKEN OUT BY WC WITH ALL BELONGINGS INCLUDING MEDS BACK FROM PHARMACY. "[facility]" PICKED UP PT BY ER DEPT.
== END 2020-02-01 11:20 | disposition home or self-care (01) | DRG 305 ==
PROVIDERS: Emergency Medicine; Internal Medicine; ADMIT Internal Medicine
DX: I16.0 Hypertensive urgency (principal); I10 Essential (primary) hypertension; R19.7 Diarrhea, unspecified; R11.2 Nausea with vomiting, unspecified; E11.9 Type 2 diabetes mellitus without complications; F17.210 Nicotine dependence, cigarettes, uncomplicated; Z79.4 Long term (current) use of insulin
CPT/HCPCS: J2060; Q9967; S0164

== ENCOUNTER 2020-05-10 00:55 | Observation (INO) | payer BC ==
[~2020-05-10] VITALS: Ht 170.2 cm; Wt 109.0 kg
[2020-05-10] VITALS (32 sets, daily range): BP systolic 118–194; BP diastolic 63–106
[~2020-05-10 00:55] MED LIST changes: +METFORMIN500 M2 PO
[2020-05-10 01:23] LABS: URINE BILIRUBIN - DIPSTICK NEGATIVE (NEGATIVE); URINE BLOOD DIPSTICK NEGATIVE (NEGATIVE); URINE COLOR YELLOW; URINE GLUCOSE - DIPSTICK 250 mg/dL (NEGATIVE); URINE KETONE NEGATIVE (NEGATIVE); URINE LEUK ESTERASE NEGATIVE (NEGATIVE); URINE NITRITE - DIPSTICK NEGATIVE (Negative); URINE PH 7.5 (4.5-8.0); URINE PROTEIN - DIPSTICK NEGATIVE (NEG-TRACE); URINE UROBILINOGEN - DIPSTICK 0.2 E.U./dL (0.2)
[2020-05-10 01:48] LABS: HEMATOCRIT 36.1 % (39.0-50.0); HEMOGLOBIN 11.3 g/dl (14.0-18.0); IMMATURE GRANULOCYTES 1.1 % (0.0-5.0); MEAN CORPUSCULAR HGB CONC 31.3 g/dL CAL (32.0-36.0); NEUT# 8.35 thou/uL (1.82-7.42); RED BLOOD COUNT 4.35 mill/uL (4.70-6.10); RED CELL DISTRI WIDTH 16.9 % (11.5-15.5)
[2020-05-10 02:06] LABS: ALBUMIN 4.4 g/dL (3.2-5.0); ALKALINE PHOSPHATASE 99 u/l (38-126); AMYLASE 84 u/l (30-110); ANION GAP 11 (6-22 (CALC)); BUN 12 mg/dL (9-20); BUN/CREATININE RATIO 16 (12-20 (CALC)); CARBON DIOXIDE 28 mmol/l (22-30); CHLORIDE 105 mmol/l (95-108); CREATININE 0.8 mg/dL (0.7-1.3); GFR > 60 ML/MIN (>=60 (CALC)); GFR FOR AFR.AMER. > 60 ML/MIN (>=60 (CALC)); LIPASE 104 u/l (23-300); POTASSIUM 3.8 mmol/l (3.5-5.1); SGOT/AST 23 u/l (17-59); SODIUM 140 mmol/l (137-146); TOTAL PROTEIN 6.9 g/dL (6.3-8.2)
[2020-05-10 02:12] LABS: BILIRUBIN, TOTAL 0.3 mg/dL (0.0-1.4)
[2020-05-10 02:18] LABS: MYOGLOBIN 31 ng/mL (0 - 121)
[2020-05-10] MEDS ORDERED: CARVEDILOL12.5 MG PO (14:00)
[2020-05-10] MEDS ORDERED: LISINOP/HCTZ1 TA1 PO (14:05)
[2020-05-10] MEDS ORDERED: METFORMIN500 M2 PO ×2 (14:10→14:12)
[2020-05-10] MEDS ORDERED: NORVASC5 M1 PO (14:18)
[2020-05-11] VITALS: BP 147/87
[2020-05-11 02:00] VITALS: BP 140/69
[2020-05-11 04:00] VITALS: BP 154/85
[2020-05-11 06:00] VITALS: BP 161/81
[2020-05-11 06:25] LABS: ALKALINE PHOSPHATASE 75 u/l (38-126); ANION GAP 13 (6-22 (CALC)); BUN 15 mg/dL (9-20); BUN/CREATININE RATIO 18 (12-20 (CALC)); CARBON DIOXIDE 24 mmol/l (22-30); CHLORIDE 101 mmol/l (95-108); CREATININE 0.8 mg/dL (0.7-1.3); GFR > 60 ML/MIN (>=60 (CALC)); GFR FOR AFR.AMER. > 60 ML/MIN (>=60 (CALC)); POTASSIUM 3.4 mmol/l (3.5-5.1); SGOT/AST 28 u/l (17-59); SODIUM 133 mmol/l (137-146); TOTAL PROTEIN 6.5 g/dL (6.3-8.2)
[2020-05-11 06:26] LABS: BILIRUBIN, TOTAL 0.8 mg/dL (0.0-1.4)
[2020-05-11] MEDS ORDERED: LISINOPRIL20 MG PO (08:03)
[2020-05-11 10:55] VITALS: BP 156/71
== END 2020-05-11 11:05 | disposition home or self-care (01) | DRG 305 ==
LOC: ED 00:55 → ED-I 02:16 → ED 03:56 → ED-I 03:57 → ICU 08:21
PROVIDERS: Emergency Medicine; ADMIT Internal Medicine; ATTEND Internal Medicine
DX: I16.0 Hypertensive urgency (principal); I10 Essential (primary) hypertension; R11.2 Nausea with vomiting, unspecified; R19.7 Diarrhea, unspecified; E11.9 Type 2 diabetes mellitus without complications; F17.210 Nicotine dependence, cigarettes, uncomplicated; Z79.4 Long term (current) use of insulin; Z20.828 Contact with and (suspected) exposure to other viral communicable diseases
CPT/HCPCS: Q9967; S0164

== ENCOUNTER 2020-08-04 22:47 | Emergency (ER) | payer BC ==
[~2020-08-04] VITALS: Ht 170.2 cm; Wt 100.0 kg
[~2020-08-04 22:47] MED LIST changes: +CARVEDILOL12.5 MG PO; +LISINOPRIL20 MG PO; +NORVASC5 M1 PO
[2020-08-04] MEDS ORDERED: HYDROCHLOROT25 MG PO (23:07)
[2020-08-04 23:52] LABS: HEMATOCRIT 45.1 % (39.0-50.0); HEMOGLOBIN 14.3 g/dl (14.0-18.0); IMMATURE GRANULOCYTES 1.1 % (0.0-5.0); MEAN CELL VOLUME 81.9 fL CALC (80.0-100.0); MEAN CORPUSCULAR HGB CONC 31.7 g/dL CAL (32.0-36.0); NEUT# 8.24 thou/uL (1.82-7.42); RED BLOOD COUNT 5.51 mill/uL (4.70-6.10); RED CELL DISTRI WIDTH 16.2 % (11.5-15.5)
[2020-08-05 00:18] LABS: CREATININE 1.5 mg/dL (0.7-1.3)
[2020-08-05 00:24] LABS: ALBUMIN 5.1 g/dL (3.2-5.0); POTASSIUM 4.4 mmol/l (3.5-5.1); TOTAL PROTEIN 8.2 g/dL (6.3-8.2)
[2020-08-05] MEDS ORDERED: PROTONIX40 M2 PO (04:27)
[2020-08-05] MEDS ORDERED: PHENERGAN25 MG/TAB PO (04:27)
[2020-08-05 04:38] VITALS: BP 174/68
== END 2020-08-05 04:38 | disposition home or self-care (01) | DRG 379 ==
LOC: ED 22:47
PROVIDERS: Family Medicine
DX: K29.71 Gastritis, unspecified, with bleeding (principal); K29.81 Duodenitis with bleeding; I10 Essential (primary) hypertension; E11.9 Type 2 diabetes mellitus without complications; F17.200 Nicotine dependence, unspecified, uncomplicated; Z87.11 Personal history of peptic ulcer disease; Z79.82 Long term (current) use of aspirin; Z79.4 Long term (current) use of insulin
CPT/HCPCS: Q9967; S0164

== ENCOUNTER 2023-02-27 10:36 | Observation (INO) | payer SELFPAY ==
[2023-02-27] VITALS (35 sets, daily range): BP systolic 140–211; BP diastolic 76–148
[~2023-02-27] VITALS: Ht 172.7 cm; Wt 64.0 kg
[~2023-02-27 10:36] MED LIST changes: +PHENERGAN25 MG/TAB PO; +PROTONIX40 M2 PO
--- NOTE | 2023-02-27 11:00 | NUR ---
PATIENT HAQD A SYNCOPLE EPISODE AT WORK. BLOOD SUGAR 368. IV ACCESS OBTAINED IN THE LEFT AC, 20G. NO DEFICITS NOTED DURING NIH ASSESSMENT. 10MG OF IV LABETALOL GIVEN.
[2023-02-27 11:19] LABS: BASO% 0.3 % (0-3); EOS% 0.2 % (0-8); HEMOGLOBIN 15.6 g/dl (14.0-18.0); IMMATURE GRANULOCYTES 0.8 % (0.0-5.0); LYMPH% 23.5 % (15-41); MEAN CELL VOLUME 81.5 fL CALC (80.0-100.0); MEAN CORPUSCULAR HGB 26.5 pG CALC (26.0-32.0); MEAN CORPUSCULAR HGB CONC 32.5 g/dL CAL (32.0-36.0); NEUT# 7.28 thou/uL (1.82-7.42); NEUT% 63.2 % (42-76); RED BLOOD COUNT 5.89 mill/uL (4.70-6.10); RED CELL DISTRI WIDTH 14.6 % (11.5-15.5)
[2023-02-27 11:35] LABS: ALBUMIN 4.6 g/dL (3.2-5.0); BILIRUBIN, TOTAL 1.2 mg/dL (0.2-1.3); BUN 28 mg/dL (9-20); BUN/CREATININE RATIO 28 (12-20 (CALC)); GFR FOR AFR.AMER. > 60 ML/MIN (>=60 (CALC)); GFR OTHER RACES > 60 ML/MIN (>=60 (CALC)); POTASSIUM 3.7 mmol/l (3.5-5.1); SGOT/AST 29 u/l (17-59); TOTAL PROTEIN 7.7 g/dL (6.3-8.2)
[2023-02-27 11:38] LABS: SODIUM 129 mmol/l (137-146)
[2023-02-27 11:39] LABS: ALKALINE PHOSPHATASE 140 u/l (38-126); ANION GAP 19 (6-22 (CALC)); CARBON DIOXIDE 27 mmol/l (22-30); CHLORIDE 87 mmol/l (95-108)
--- NOTE | 2023-02-27 11:39 | NUR ---
SECOND DOSE OF LABETALOL 10MG GIVEN. CONTINUING TO MONITOR .
--- NOTE | 2023-02-27 12:00 | NUR ---
HYDRALAZINE 10MG GIVEN AT THIS TIME. BP REMAINS ELEVATED. MOM AT THE BEDSIDE. PATIENT CAN'T RECALL THE NAMES OF THE MEDICATIONS THAT HE TAKES.
--- NOTE | 2023-02-27 12:12 | NUR ---
MEDICATION RECONCILIATION COMPLETED TO THE BEST OF THE PATIENTS AND MOTHERS KNOWLEDGE. PATIENT TAKES ADDITIONAL MEDICATIONS BUT DOSEN'T KNOW NAMES OR DOSES.
--- NOTE | 2023-02-27 12:22 | NUR ---
BP RESPONDING TO THE HYDRALAZINE GIVEN. DR. RESENDIZ AT THE BEDSIDE TO DISCUSE ADMISSION.
--- NOTE | 2023-02-27 15:05 | NUR ---
CALLED ICU FOR REPORT. THE NURSE IS UNAVAILABLE AT THIS TIME.
--- NOTE | 2023-02-27 15:27 | NUR ---
CALLED THE ICU AND REPORT WAS GIVEN TO NURSE ROSADO.
--- NOTE | 2023-02-27 15:51 | NUR ---
ASSUMED CARE OF THE PT AT THIS TIME
--- NOTE | 2023-02-27 16:40 | NUR ---
PT TO MED SURG RM 262 FROM ER. REPORT RECEIVED FROM ER NURSE. PT IS AWAKE, ALERT AND ORIENTED X3. PT HAS NO C/O PAIN AT THIS TIME. PT AMBULATES WELL FROM W/C TO BED. PT ORIENTED TO ROOM, BATHROOM AND CALL LIGHT. IV TO THE LAC CLEAN AND INTACT. SKIN CLEAN AND INTACT. PT HAS CALL LIGHT WITHIN REACH AND SAFETY MEASURES IN PLACE.
--- NOTE | 2023-02-27 20:02 | NUR ---
pt had a bp of 166/102 @1918. notified KATELIN Hilton @1919.
--- NOTE | 2023-02-27 20:12 | NUR ---
received bedside shift report at start of shift. pt alert and oriented. resting. on tele. bp 170/103 apresoline given as ordered via iv. blood sugar 343. levimer and humalog given as ordered.
--- NOTE | 2023-02-27 23:55 | NUR ---
pt had a bp of 149/102 @3115. KATELIN Hilton notified @8641.
[2023-02-28 04:17] VITALS: BP 178/155
[2023-02-28 04:27] VITALS: BP 160/96
--- NOTE | 2023-02-28 04:42 | NUR ---
pt had a bp of 178/155 @9480.KATELIN Hilton notified @9903.
[2023-02-28 06:06] LABS: BASO% 0.4 % (0-3); EOS% 0.7 % (0-8); HEMATOCRIT 48.1 % (39.0-50.0); HEMOGLOBIN 15.6 g/dl (14.0-18.0); IMMATURE GRANULOCYTES 1.2 % (0.0-5.0); LYMPH% 29.5 % (15-41); MEAN CELL VOLUME 82.9 fL CALC (80.0-100.0); MEAN CORPUSCULAR HGB 26.9 pG CALC (26.0-32.0); MEAN CORPUSCULAR HGB CONC 32.4 g/dL CAL (32.0-36.0); MONO% 14.8 % (2-13); NEUT# 5.15 thou/uL (1.82-7.42); NEUT% 53.4 % (42-76); RED BLOOD COUNT 5.8 mill/uL (4.70-6.10); RED CELL DISTRI WIDTH 14.9 % (11.5-15.5)
[2023-02-28 06:36] LABS: ALBUMIN 4.3 g/dL (3.2-5.0); ALKALINE PHOSPHATASE 123 u/l (38-126); ANION GAP 14 (6-22 (CALC)); BUN 25 mg/dL (9-20); BUN/CREATININE RATIO 29 (12-20 (CALC)); CARBON DIOXIDE 29 mmol/l (22-30); CHLORIDE 91 mmol/l (95-108); CREATININE 0.9 mg/dL (0.7-1.3); GFR FOR AFR.AMER. > 60 ML/MIN (>=60 (CALC)); GFR OTHER RACES > 60 ML/MIN (>=60 (CALC)); POTASSIUM 3.4 mmol/l (3.5-5.1); SGOT/AST 28 u/l (17-59); SODIUM 131 mmol/l (137-146); TOTAL PROTEIN 7.2 g/dL (6.3-8.2)
[2023-02-28 06:49] VITALS: BP 154/104
[2023-02-28 06:50] VITALS: BP 168/96
--- NOTE | 2023-02-28 08:00 | NUR ---
PT SITTING UP IN CHAIR AT BEDSIDE. PT IS ALERT AND ORIENTED X 3, NO C/O PAIN AT THIS TIME. IV TO LAC CLEAN AND INTACT. TELE ON WITH ALL LEADS ATTACHED. PT AMBULATES WELL FOR TOILETING NEEDS. PT HAS CALL LIGHT WITHIN REACH AND ALL SAFETY MEASURES IN PLACE.
[2023-02-28 10:01] VITALS: BP 146/106
--- NOTE | 2023-02-28 10:09 | NUR ---
PT HAVE A BP RATE OF 146/106 @ 1001AM. RECHECK AND IT WAS STILL HIGH 155/104 @ 1002. NURSE WAS NOTIFIED. WILL RECHECK PER NURSE REQUEST.
--- NOTE | 2023-02-28 11:04 | NUR ---
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 MERRILL PHONE # [phone]. WILL AWAIT RETURN CALL TO SET-UP HOME HEALTH CARE FOR MEDICATION COMPLAINCE.
--- NOTE | 2023-02-28 11:25 | NUR ---
Discharge instructions given. Patient verbalizes understanding of same. Discharged in stable condition via Ambulatory to with family. All belongings sent with pt.
--- NOTE | 2023-02-28 11:34 | NUR ---
RECIEVED CALL BACK FROM MIGUEL ANGEL'Edmundo FROM [facility] AND HE STATES THAT THIS PATIENT DOESN'T HAVE ANY HEALTH INSURANCE COVERAGE THRU THE [employer]. PATIENT IS NOT HOMEBOUND EITHER THEREFORE THERE WILL BE NO HOME HEALTH SERVICES PROVIDED AT THIS TIME. WILL F/UP WITH PCP IN 1 WEEK.
== END 2023-02-28 11:21 | disposition home or self-care (01) | DRG 312 ==
LOC: ED 10:36 → ED-I 11:29 → ED 13:07 → MS2 13:08 → ED-I 13:17 → ED 13:17 → ED-I 13:18 → MS2 02-28 11:21
PROVIDERS: Family Medicine; Nurse Practitioner Family; ADMIT Internal Medicine; ATTEND Internal Medicine
DX: R55 Syncope and collapse (principal); I10 Essential (primary) hypertension; E11.9 Type 2 diabetes mellitus without complications; Z79.4 Long term (current) use of insulin; Z79.84 Long term (current) use of oral hypoglycemic drugs; Z87.891 Personal history of nicotine dependence; Z91.119 Patient's noncompliance with dietary regimen due to unspecified reason; T50.916A Underdosing of multiple unspecified drugs, medicaments and biological substances, initial encounter; Z91.128 Patient's intentional underdosing of medication regimen for other reason
CPT/HCPCS: G0378; J1650

== ENCOUNTER 2023-03-02 10:41 | Emergency (ER) | payer BC ==
[2023-03-02] VITALS (32 sets, daily range): BP systolic 107–159; BP diastolic 63–109
[~2023-03-02] VITALS: Ht 172.7 cm; Wt 117.0 kg
[2023-03-02 12:57] LABS: BASO% 0.8 % (0-3); EOS% 1.3 % (0-8); HEMATOCRIT 48.1 % (39.0-50.0); HEMOGLOBIN 15.3 g/dl (14.0-18.0); IMMATURE GRANULOCYTES 1.9 % (0.0-5.0); LYMPH% 34.4 % (15-41); MEAN CELL VOLUME 83.5 fL CALC (80.0-100.0); MEAN CORPUSCULAR HGB 26.6 pG CALC (26.0-32.0); MEAN CORPUSCULAR HGB CONC 31.8 g/dL CAL (32.0-36.0); MONO% 11.3 % (2-13); NEUT# 4.03 thou/uL (1.82-7.42); NEUT% 50.3 % (42-76); RED BLOOD COUNT 5.76 mill/uL (4.70-6.10); RED CELL DISTRI WIDTH 14.6 % (11.5-15.5)
[2023-03-02 13:08] LABS: ALBUMIN 4.5 g/dL (3.2-5.0); ALKALINE PHOSPHATASE 120 u/l (38-126); ANION GAP 14 (6-22 (CALC)); BILIRUBIN, TOTAL 0.8 mg/dL (0.2-1.3); BUN 23 mg/dL (9-20); BUN/CREATININE RATIO 25 (12-20 (CALC)); CARBON DIOXIDE 28 mmol/l (22-30); CHLORIDE 94 mmol/l (95-108); CREATININE 0.9 mg/dL (0.7-1.3); ETHYL ALCOHOL 0 mg/dl (0-30); GFR FOR AFR.AMER. > 60 ML/MIN (>=60 (CALC)); GFR OTHER RACES > 60 ML/MIN (>=60 (CALC)); SGOT/AST 20 u/l (17-59); SODIUM 132 mmol/l (137-146); TOTAL PROTEIN 7.3 g/dL (6.3-8.2)
[2023-03-02 13:11] LABS: POTASSIUM 4.4 mmol/l (3.5-5.1)
[2023-03-02 16:28] LABS: URINE BILIRUBIN - DIPSTICK NEGATIVE (NEGATIVE); URINE BLOOD DIPSTICK NEGATIVE (NEGATIVE); URINE COLOR YELLOW; URINE GLUCOSE - DIPSTICK >=1000 mg/dL (NEGATIVE); URINE KETONE NEGATIVE (NEGATIVE); URINE LEUK ESTERASE NEGATIVE (NEGATIVE); URINE PROTEIN - DIPSTICK NEGATIVE (NEG-TRACE); URINE SPECIFIC GRAVITY 1.015
[2023-03-02 16:29] LABS: URINE NITRITE - DIPSTICK NEGATIVE (Negative)
== END 2023-03-02 18:36 | disposition home or self-care (01) | DRG 639 ==
LOC: ED 10:41
PROVIDERS: Family Medicine
DX: E11.65 Type 2 diabetes mellitus with hyperglycemia (principal); I10 Essential (primary) hypertension; Z79.84 Long term (current) use of oral hypoglycemic drugs; Z79.4 Long term (current) use of insulin